=== PATIENT | female | born 1975 | race Caucasian/White ===

== ENCOUNTER → 2021-09-23 | Outpatient (CLI) | payer OTHER ==
--- NOTE | 2021-09-23 14:31 | MM ---
Reason for Exam: Clinical finding. Last mammogram was performed 10 year(s) and 0 month(s) ago. Patient History: Menarche at age 11. First Full-Term at age 17. Maternal aunt had breast cancer. Risk Values: Bridgette 5 year model risk: 0.6%. NCI Lifetime model risk: 6.8%. Film Views: Bilateral CC views were taken. Bilateral MLO views were taken. 2 view(s) taken. Prior Study Comparison: 09/02/2011 Bilateral Screening Mammogram, [facility]. Tissue Density: There are scattered fibroglandular densities. Findings: Analyzed By CAD. Mammogram No significant mass, suspicious microcalcifications, or other discrete abnormality is seen on either side. Technique: Method: Targeted. Findings: The axilla of the right breast was scanned. Targeted scanning of the patient's palpable site at the right axilla shows prominent subcutaneous adipose tissue. Also, there is a mildly enlarged 3.2 x 3.2 x 1.3 cm lymph node with possible cortical thickening up to 1 cm. This is likely reactive/post inflammatory. No suspicious lymphadenopathy was seen on the mammogram. A couple additional benign-appearing axillary lymph nodes are also noted. Short interval follow-up recommended. Overall Assessment: Probably benign, BI-RAD 3 Assessment: MG 3D diag mammo w/cad TONIO - Bilateral: Probably benign, BI-RAD 3 - Right. US breast axilla RT - Right: Probably benign, BI-RAD 3. Management: Diagnostic Breast Ultrasound of the right breast in 3 months. 1. Three-month follow-up ultrasound for the thickened right axillary lymph node, probably reactive/post inflammatory. 2. Patient should continue monthly self breast exams. 3. This examination with additional follow-up of suspicious palpable abnormalities. Results were given to the patient verbally at the time of exam. Electronically signed and approved by: Gab Butt M.D. Radiologist
== END | disposition home or self-care (01) ==
LOC: RADMAMWWP 13:13
PROVIDERS: ATTEND Family Medicine
DX: R92.8 Other abnormal and inconclusive findings on diagnostic imaging of breast (principal); Z80.3 Family history of malignant neoplasm of breast
CPT/HCPCS: 77066; 76642; G0279; 77062